=== PATIENT | male | born 1975 | race Two or more races ===

== ENCOUNTER 2016-06-25 20:42 | Inpatient (IN) | payer SELFPAY ==
[~2016-06-25] VITALS: Ht 172.7 cm; Wt 98.2 kg
[2016-06-25 21:25] LABS: BASO # 0.1 x10^3/uL (0.0-0.2); BASO % 1 % (0-3); EOS % 0 % (0-3); HEMATOCRIT 47.1 % (39.0-53.0); HEMOGLOBIN 16.6 g/dL (13.0-17.5); LYMPH # 2.1 x10^3/uL (1.0-4.8); LYMPH % 16 % (24-48); MEAN CORPUSCULAR HEMOGLOBIN 32 pg (25-35); MEAN CORPUSCULAR HGB CONC 35 g/dL (31-37); MEAN CORPUSCULAR VOLUME 90 fL (79-100); MONO % 9 % (0-9); NEUT % 75 % (31-73); PLATELET COUNT 365 x10^3/uL (140-400); RED BLOOD COUNT 5.25 x10^6/uL (4.30-5.70); RED CELL DISTRIBUTION WIDTH 13.3 % (11.5-14.5); WHITE BLOOD COUNT 13.6 x10^3/uL (4.0-11.0)
[2016-06-25] MEDS ORDERED: IV NORMAL SALINE 1000ML BAG 1,000 ML IV ONE (21:45)
[2016-06-25 21:48] LABS: CALCIUM 9.6 mg/dL (8.5-10.1); CREATININE 0.9 mg/dL (0.7-1.3); POTASSIUM 4.2 mmol/L (3.5-5.1)
[2016-06-25 21:50] LABS: ALBUMIN 4.1 g/dL (3.4-5.0); TOTAL BILIRUBIN 0.9 mg/dL (0.2-1.0); TOTAL PROTEIN 8.1 g/dL (6.4-8.2)
[2016-06-25] MEDS ORDERED: KETOROLAC 15 MG/ML VIAL. IV ONE (22:45)
[2016-06-25] MEDS ORDERED: LIDO:MAALOX:DONNATAL 1:1:1 15 ML SINGLE DOSE SWSW ONE (22:45)
[2016-06-25] MEDS ORDERED: HYDROmorphone 2 MG/ML VIAL IV ONE (22:45)
[2016-06-25] MEDS ORDERED: ONDANSETRON PF 4 MG/2 ML VIAL. IV ONE (22:45)
[2016-06-25 23:02] LABS: BILIRUBIN,URINE NEGATIVE (NEG); GLUCOSE,URINE NEGATIVE (NEG); NITRITE,URINE NEGATIVE (NEG); PH,URINE 6.5; PROTEIN,URINE 100 mg/dL (NEG-TRACE)
[2016-06-25 23:07] LABS: BARBITURATES NEG (NEG); BENZODIAZEPINES NEG (NEG); CANNABINOIDS NEG (NEG); COCAINE NEG (NEG); METHADONE NEG (NEG); OPIATES NEG (NEG); PHENCYCLIDINE NEG (NEG)
[2016-06-25 23:08] LABS: BACTERIA,URINE FEW /HPF (0-FEW)
--- NOTE | 2016-06-25 23:58 | RAD ---
PROCEDURE CT abdomen and pelvis without contrast HISTORY Abdominal pain for 2 days, nausea and vomiting TECHNIQUE Exposure: One or more of the following individualized dose reduction techniques were utilized for this exam: 1. Automated exposure control. 2. Adjustment of the mA and/or kV according to patient size. 3. Use of iterative reconstruction technique. Helical noncontrast CT imaging of the abdomen and pelvis was acquired COMPARISON No prior FINDINGS Abdomen: Hypodensity of the liver likely fatty. Pancreas, adrenals, spleen, gallbladder and kidneys are unremarkable. No nephroureterolithiasis or hydronephrosis. There is mild descending and sigmoid colon diverticulosis. No bowel obstruction or inflammation. The appendix is negative. No abdominal fluid. Pelvis: Bladder, prostate, rectum and bones are unremarkable. No pelvic fluid. Bones unremarkable. IMPRESSION No acute process. Appendix is negative. Probable fatty liver. Sigmoid colon diverticulosis. Electronically signed by: Fred Minaya MD (June 25, 2016 23:57:58)
[2016-06-26] MEDS ORDERED: ONDANSETRON PF 4 MG/2 ML VIAL. IV PRN (00:15)
[2016-06-26] MEDS ORDERED: ACETAMINOPHEN 325 MG TABLET. PO PRN (00:15)
[2016-06-26 00:23] VITALS: BP 134/101
[2016-06-26] MEDS: IV NORMAL SALINE 1000ML BAG 1,000 ML IV SCH ×2 (02:09→10:17)
[2016-06-26 02:43] VITALS: BP 142/103
--- NOTE | 2016-06-26 02:57 | PHYS DOC ---
Past Medical History Past Medical History: No Pertinent History Past Surgical History: Other Additional Past Surgical Histo: L. HAND Alcohol Use: Heavy Drug Use: Methamphetamine Adult General Chief Complaint Chief Complaint: CHEST PAIN HPI HPI Patient is a 40 year old gentleman with a history significant for tobacco alcohol or drug use presents here today complaining of chest pain for 2 hours. Patient reports that he smokes every day. Patient reports he's been drinking heavily recently. Patient reports that he utilized methamphetamine over the last 24-48 hours. Patient reports that he's got sharp and pressure-like sensation to the left side of his chest. Patient reports she's had nausea vomiting diaphoresis with the patient's friend the pain as a pressure sensation on the left side of his chest with associated shortness of breath. Patient denies any pain radiating down his arms back or jaw however he does have some numbness sensation to both hands. Patient has any cough abdominal pain dysuria frequency or urgency. Patient has any fevers shakes chills. Patient reports the pain increases when he and released. Patient also complaining of abdominal discomfort which is in the midepigastric area. Patient denies any melena or bright red blood per rectum. Patient denies any history of gastritis or GI bleed in the past. She has been moving his bowels and passing flatus without any problems. Patient's physical exam the ED was significant for some reproducible tenderness to his left anterior chest wall. Patient reports that this is dissimilar to the pain that made him come to the ER. Patient also complaining of some midepigastric tenderness to palpation. Patient has normal active bowel sounds. Patient has no rebound or guarding. Patient is not exhibiting any signs or symptoms of be consistent with an acute surgical abdomen. Patient's lungs were clear. Patient was tachycardic in the ER. Patient's heart rates been running between 115 to 130 throughout his stay. Patient's ER workup has been unremarkable. Patient's EKG revealed sinus tachycardia with nonspecific ST-T wave abnormalities with no evidence of ST elevation PR. Patient's lab work is benign unremarkable. Patient's troponin is negative. Patient's lipase is within normal limits. Patient had a CT scan of his abdomen and pelvis which revealed no acute pathology. The ER the patient was given pain medications for his abdominal discomfort and antiemetics. Patient was given IV fluids. Patient reports no significant change in the pain since he's been here. A/P #1 chest pain etiology unclear however given the fact the patient does use methamphetamines and the nature of his discomfort patient will be admitted to the hospital to rule out for cardiac source of his pain. #2 tachycardia most likely secondary to the patient's methamphetamine use. We will observe him after rehydrate and reevaluate. #3 abdominal pain. Patient likely has gastritis. Pain he reports slightly improved after the medicines that we've given him in the ED. Patient's CT scan of his abdomen and pelvis did not reveal any source for his abdominal discomfort. Patient will be reassessed while he is in hospital for this. Review of Systems Review of Systems Constitutional: Denies fever or chills [] Eyes: Denies change in visual acuity, redness, or eye pain [] HENT: Denies nasal congestion or sore throat [] All other review systems are negative except as documented in the history of present illness portion. Current Medications Current Medications Current Medications Medications (Trade) Dose Ordered Sig/Mona Start Time Stop Time Status Last Admin Dose Admin Hydromorphone HCl (Dilaudid) 0.5 mg 1X ONCE 06/25/16 22:45 06/25/16 22:46 DC 06/25/16 22:54 0.5 MG Ketorolac Tromethamine (Toradol) 15 mg 1X ONCE 06/25/16 22:45 06/25/16 22:46 DC 06/25/16 22:53 15 MG Multi-Ingredient Mouthwash/Gargle (Gi Cocktail Single Dose) 15 ml 1X ONCE 06/25/16 22:45 06/25/16 22:46 DC 06/25/16 22:53 15 ML Ondansetron HCl (Zofran) 4 mg 1X ONCE 06/25/16 22:45 06/25/16 22:46 DC 06/25/16 22:53 4 MG Sodium Chloride 1,000 ml @ 1,000 mls/hr 1X ONCE 06/25/16 21:45 06/25/16 22:44 DC 06/25/16 21:48 1,000 MLS/HR Allergies Allergies Allergies Coded Allergies Type Severity Reaction Last Updated Verified No Known Drug Allergies 06/25/16 No Physical Exam Physical Exam Constitutional: Well developed, well nourished, no acute distress, non-toxic appearance. [] HENT: Normocephalic, atraumatic, bilateral external ears normal, oropharynx moist, no oral exudates, nose normal. [] Eyes: PERRLA, EOMI, conjunctiva normal, no discharge. [] Neck: Normal range of motion, no tenderness, supple, no stridor. [] Cardiovascular:Heart rate regular rhythm, tachy Lungs & Thorax: Bilateral breath sounds clear to auscultation [] Abdomen: Bowel sounds normal, soft, , no masses, no pulsatile masses. [] Skin: Warm, dry, no erythema, no rash. [] Back: No tenderness, no CVA tenderness. [] Extremities: No tenderness, no cyanosis, no clubbing, ROM intact, no edema. [] Neurologic: Alert and oriented X 3, normal motor function, normal sensory function, no focal deficits noted. [] Psychologic: Affect normal, judgement normal, mood normal. [] Current Patient Data Vital Signs Vital Signs Date Time Temp Pulse Resp B/P (MAP) Pulse Ox O2 Delivery O2 Flow Rate FiO2 06/25/16 22:56 124 20 152/108 (123) 95 Room Air 06/25/16 21:28 97.9 97.9 Lab Values Laboratory Tests Test 06/25/16 20:54 06/25/16 22:50 White Blood Count 13.6 x10^3/uL (4.0-11.0) H Red Blood Count 5.25 x10^6/uL (4.30-5.70) Hemoglobin 16.6 g/dL (13.0-17.5) Hematocrit 47.1 % (39.0-53.0) Mean Corpuscular Volume 90 fL (79-100) Mean Corpuscular Hemoglobin 32 pg (25-35) Mean Corpuscular Hemoglobin Concent 35 g/dL (31-37) Red Cell Distribution Width 13.3 % (11.5-14.5) Platelet Count 365 x10^3/uL (140-400) Neutrophils (%) (Auto) 75 % (31-73) H Lymphocytes (%) (Auto) 16 % (24-48) L Monocytes (%) (Auto) 9 % (0-9) Eosinophils (%) (Auto) 0 % (0-3) Basophils (%) (Auto) 1 % (0-3) Neutrophils # (Auto) 10.2 x10^3uL (1.8-7.7) H Lymphocytes # (Auto) 2.1 x10^3/uL (1.0-4.8) Monocytes # (Auto) 1.2 x10^3/uL (0.0-1.1) H Eosinophils # (Auto) 0.0 x10^3/uL (0.0-0.7) Basophils # (Auto) 0.1 x10^3/uL (0.0-0.2) Sodium Level 139 mmol/L (136-145) Potassium Level 4.2 mmol/L (3.5-5.1) Chloride Level 100 mmol/L (98-107) Carbon Dioxide Level 23 mmol/L (21-32) Anion Gap 16 (6-14) H Blood Urea Nitrogen 11 mg/dL (8-26) Creatinine 0.9 mg/dL (0.7-1.3) Estimated GFR (Cockcroft-Gault) 93.0 BUN/Creatinine Ratio 12 (6-20) Glucose Level 112 mg/dL (70-99) H Calcium Level 9.6 mg/dL (8.5-10.1) Total Bilirubin 0.9 mg/dL (0.2-1.0) Aspartate Amino Transferase (AST) 30 U/L (15-37) Alanine Aminotransferase (ALT) 52 U/L (16-63) Alkaline Phosphatase 60 U/L (46-116) Troponin I Quantitative 0.032 ng/mL (0.000-0.055) ZB-Lzo-H-Type Natriuretic Peptide 77 pg/mL (0-124) Total Protein 8.1 g/dL (6.4-8.2) Albumin 4.1 g/dL (3.4-5.0) Albumin/Globulin Ratio 1.0 (1.0-1.7) Lipase 84 U/L (73-393) Urine Collection Type Unknown Urine Color Yellow Urine Clarity Clear Urine pH 6.5 Urine Specific [place] 1.025 Urine Protein 100 mg/dL (NEG-TRACE) Urine Glucose (UA) Negative mg/dL (NEG) Urine Ketones (Stick) >=80 mg/dL (NEG) Urine Blood Negative (NEG) Urine Nitrite Negative (NEG) Urine Bilirubin Negative (NEG) Urine Urobilinogen Dipstick 1.0 mg/dL (0.2 mg/dL) Urine Leukocyte Esterase Small (NEG) Urine RBC 1-2 /HPF (0-2) Urine WBC 1-4 /HPF (0-4) Urine Squamous Epithelial Cells None /LPF Urine Bacteria Few /HPF (0-FEW) Urine Mucus Mod /LPF Urine Opiates Screen Neg (NEG) Urine Methadone Screen Neg (NEG) Urine Barbiturates Neg (NEG) Urine Phencyclidine Screen Neg (NEG) Urine Amphetamine/Methamphetamine Pos (NEG) Urine Benzodiazepines Screen Neg (NEG) Urine Cocaine Screen Neg (NEG) Urine Cannabinoids Screen Neg (NEG) Urine Ethyl Alcohol Pos (NEG) Laboratory Tests 06/25/16 20:54 Laboratory Tests 06/25/16 20:54 EKG EKG [] Radiology/Procedures Radiology/Procedures [] Course & Med Decision Making Course & Med Decision Making Pertinent Labs and Imaging studies reviewed. (See chart for details) [] Dragon Disclaimer Dragon Disclaimer This electronic medical record was generated, in whole or in part, using a voice recognition dictation system. Departure Departure Impression: Primary Impression: Abdominal pain Additional Impressions: Nonspecific chest pain Tachycardia Methamphetamine use Alcohol use Disposition: 09 ADMITTED INPATIENT Admitting Physician: Other (reusch) Condition: GUARDED Referrals: NO PCP (PCP) Problem Qualifiers Primary Impression: Abdominal pain Abdominal location: epigastric Qualified Codes: R10.13 - Epigastric pain DARLENE COFFEY MD June 26, 2016 02:57
[2016-06-26] MEDS ORDERED: IBUPROFEN 400 MG TABLET. PO PRN (03:45)
[2016-06-26] MEDS: METOPROLOL TART IMMED RELEASE 25 MG TABLET. PO SCH ×3 (03:49→12:09)
--- NOTE | 2016-06-26 05:21 | ACF ---
Admission Forms Criteria ABDOMINAL PAIN Clinical Indications for Admission to Inpatient Care (Place 'X' for any and all applicable criteria): Admission is indicated for ANY ONE of the following(1)(2)(3)(4)(5): [ ]I. Inpatient admission required rather than observation care (Also use Abdominal Pain: Observation Care, as appropriate) because of ANY ONE of the following: [ ]a) Severe pain requiring acute inpatient management [ ]b) Identification of etiology/finding that requires inpatient care (eg, aortic dissection, free air) [ ]c) Absent bowel sounds with complete ileus(6) [ ]d) Suspected toxic megacolon [ ]e) Severe electrolyte abnormalities requiring inpatient care [ ]f) High fever or infection requiring inpatient admission as indicated by ANY ONE of following(7)(8): [ ] i) Appropriate outpatient or observational care antimicrobial treatment unavailable, not effective, or not feasible [ ] ii) Documented bacteremia [ ] iii) Temperature > 104.9 degrees F (oral) [ ] iv) T >103.1 F (oral) or < 96.8 F(rectal) that does not respond to all emergency treatment measures [ ]g) Signs of intestinal obstruction [B] [ ]h) Hemodynamic instability [ ]i) IV fluid to replace significant ongoing losses (greater than 3 L/m2 per day) (12)(13) [ ]j) Percutaneous or open drainage (eg, abscess, biliary tract ) procedures [ ]k) Parenteral nutrition regimen that must be implemented on inpatient basis [ ]l) Other condition,treatment or monitoring requiring inpatient admission. [ ]II. Peritoneal signs present [ ]III. Surgery needed that cannot be performed on an ambulatory basis. [ ]IV. Evaluation requires patient to not eat or drink for extended period ( eg, more than 24 hours). [ ]V. Contraindications and/or Inappropriate clinical situations for Observational Care in patients with abdominal pain, when ANY ONE of the following is required: [ ]a) Thorough evaluation is required to prevent catastrophic events due to delays in diagnosing (e.g.Mesenteric ischemia) 1,3 [ ]b) Patient with severe pathology or with chronic symptoms unlikely to improve in the ED stay (3) [X]. General contraindications and/or Inappropriate clinical situations for Observational Care in patients with abdominal pain, when ANY ONE of the following is required: [ ]a) Prediction of prolongation of LOS based on ANY ONE of the following may be considered as a contraindication for observational care 2, 3, 4, 5, 6, 7, 8, 9, 10, 11 [ ]i) Age > 65 yrs. [ ]ii) Patient arriving by ambulance [ ]iii) Patient with high acuity [ ]iv) Patient requiring vital sign monitoring [ ]v) Patient on IV medication [X]b) Systolic blood pressures 180mmHg 3,12 [ ]c) Patient with altered mental status including delirium and other alteration of consciousness, (3) [ ]d) Patient whose discharge disposition will be to a alf home or rehabilitation home should not be managed in Emergency Department Observation Unit. CMS rule requires 3 days hospital stay before such placement.3,13 [ ]e) Patient with failure to thrive due to broad array of etiologies 3,16,17 [ ]f) Inability to ambulate 3,14 Extended stay beyond goal length of stay may be needed for(2)(3): [ ]a) Persistent abdominal pain with suspected intra-abdominal process [ ]b) Diagnosed condition requiring continued stay (e.g., pancreatitis, complicated diverticulitis) [ ]c) Surgery (e.g., colectomy) The original [facility] content created by [employer] has been revised. The portions of the content which have been revised are identified through the use of italic text or in bold, and [facility] has neither reviewed nor approved the modified material.All other unmodified content is copyright [employer]. Please see references footnoted in the original [facility] edition 2016 Admission Criteria Met?: Yes YENY FRANK June 26, 2016 05:21
[2016-06-26] MEDS ORDERED: hydrALAZINE 20 MG/ML VIAL. IVP ONE (06:15)
--- NOTE | 2016-06-26 07:14 | EKG ---
[facility] [address] [place] [address] Test Date: 2016-06-25 Test Time: 20:48:43 Pat Name: EJREMY ASHTON Department: Room: 211 1 Gender: M Barn Worker: : 1975 Requested By: FAWAD CARROLL Order Number: [id number] Reading MD: Elvin Roth Measurements Intervals Hope Rate: 143 P: 1 [place]: 136 QRS: 49 QRSD: 78 T: 38 QT: 260 QTc: 406 Interpretive Statements SINUS TACHYCARDIA NON-SPECIFIC ST/T CHANGES Electronically Signed On 07-01-2016 9:12:55 CDT by Elvin Roth
--- NOTE | 2016-06-26 07:23 | RAD ---
Exam performed: One view chest. Indication: Chest pain today Date of Service: 06/25/2016 11:18 PM Comparison: None available. Single AP upright portable view chest findings: Cardiomediastinal silhouette is within limits of normal. No acute infiltrates, effusion or pneumothorax is detected. The bony structures are normal. Impression: No acute cardiopulmonary process is detected.
[2016-06-26 07:46] VITALS: BP 155/79
--- NOTE | 2016-06-26 09:43 | PDOC2 ---
CARDIAC CONSULT DATE OF CONSULT Date of Consult DATE: 06/26/16 TIME: 09:43 REASON FOR CONSULT Reason for Consult: chest pain REFERRING PHYSICIAN Referring Physician: Dr. Josefina Rios SOURCE Source: Caregiver (), Chart review, Patient HISTORY OF PRESENT ILLNESS HISTORY OF PRESENT ILLNESS 40 year old male admitted through the ER with c/o left side chest pain described as a grabbing and pressure sensation associated with left hand numbness, a fluttering sensation in his stomach with nausea and vomiting X 2 and abnormal sensation in his tongue. He also experienced a heavy sensation in his legs, diaphoresis and palpitations. Patient had a headache earlier in the day and was given 2 pills by a colleague. He did not know what was in the pills. Had also been drinking heavily X 2 days. UDS positive for methamphetamines and ETOH. EKG demonstrates tachycardia but no acute changes. Troponin levels not consistent with ACS. WBC mildly elevated @ 13. Reason for Visit: chest pain PAST MEDICAL HISTORY Cardiovascular: No pertinent hx Pulmonary: No pertinent hx CENTRAL NERVOUS SYSTEM: Other (denies) GI: No pertinent hx Heme/Onc: No pertinent hx Hepatobiliary: No pertinent hx Psych: No pertinent hx Musculoskeletal: No pain Rheumatologic: No pertinent hx Infectious disease: No pertinent hx ENT: No pertinent hx Renal/: No pertinent hx Endocrine: No pertinent hx Dermatology: No pertinent hx PAST SURGICAL HISTORY Past Surgical History: Other (left wrist; right leg plates for fracture) FAMILY HISTORY Family History: Hypertension (brother), Stroke (father at age 58) SOCIAL HISTORY Social History tobacco - smokes socially when he drinks ETOH ALCOHOL: occassional Drugs: Crystal meth (first use 06/25/2016) Lives: with Family () CURRENT MEDICATIONS CURRENT MEDICATIONS Current Medications Medications (Trade) Dose Ordered Sig/Mona Route PRN Reason Start Time Stop Time Status Last Admin Dose Admin Sodium Chloride 1,000 ml @ 1,000 mls/hr 1X ONCE IV 06/25/16 21:45 06/25/16 22:44 DC 06/25/16 21:48 Multi-Ingredient Mouthwash/Gargle (Gi Cocktail Single Dose) 15 ml 1X ONCE SWSW 06/25/16 22:45 06/25/16 22:46 DC 06/25/16 22:53 Ondansetron HCl (Zofran) 4 mg 1X ONCE IV 06/25/16 22:45 06/25/16 22:46 DC 06/25/16 22:53 Ketorolac Tromethamine (Toradol) 15 mg 1X ONCE IV 06/25/16 22:45 06/25/16 22:46 DC 06/25/16 22:53 Hydromorphone HCl (Dilaudid) 0.5 mg 1X ONCE IV 06/25/16 22:45 06/25/16 22:46 DC 06/25/16 22:54 Sodium Chloride 1,000 ml @ 125 mls/hr Q8H IV 06/26/16 00:15 06/27/16 00:14 06/26/16 02:09 Metoprolol Tartrate (Lopressor) 12.5 mg BID PO 06/26/16 03:45 06/26/16 03:49 Ibuprofen (Motrin) 400 mg PRN Q8HRS PRN PO PAIN 06/26/16 03:45 06/26/16 03:50 Hydralazine HCl (Apresoline) 10 mg 1X ONCE IVP 06/26/16 06:15 06/26/16 06:16 DC 06/26/16 06:27 ALLERGIES ALLERGIES: Coded Allergies: No Known Drug Allergies (Unverified , 06/25/16) ROS Review of System 14 point review with pertinent positives in HPI. PHYSICAL EXAM General: Alert, Oriented X3, Cooperative, No acute distress HEENT: Atraumatic, PERRLA Lungs: Clear to auscultation, Normal air movement Heart: Regular rate, Normal S1, Normal S2, No murmurs Abdomen: Normal bowel sounds, Soft, No tenderness Extremities: No edema, Normal pulses Skin: No rashes Neuro: Normal speech Psych/Mental Status: Mental status NL, Mood NL MUSCULOSKELETAL: No deformity VITALS VITALS Vital Signs Date Time Temp Pulse Resp B/P (MAP) Pulse Ox O2 Delivery O2 Flow Rate FiO2 06/26/16 07:46 99.0 111 18 155/79 (104) 96 Room Air 99.0 06/26/16 02:43 2.0 LABS Lab: Laboratory Tests Test 06/25/16 20:54 06/25/16 22:50 06/26/16 01:50 06/26/16 05:40 White Blood Count 13.6 x10^3/uL (4.0-11.0) Red Blood Count 5.25 x10^6/uL (4.30-5.70) Hemoglobin 16.6 g/dL (13.0-17.5) Hematocrit 47.1 % (39.0-53.0) Mean Corpuscular Volume 90 fL (79-100) Mean Corpuscular Hemoglobin 32 pg (25-35) Mean Corpuscular Hemoglobin Concent 35 g/dL (31-37) Red Cell Distribution Width 13.3 % (11.5-14.5) Platelet Count 365 x10^3/uL (140-400) Neutrophils (%) (Auto) 75 % (31-73) Lymphocytes (%) (Auto) 16 % (24-48) Monocytes (%) (Auto) 9 % (0-9) Eosinophils (%) (Auto) 0 % (0-3) Basophils (%) (Auto) 1 % (0-3) Neutrophils # (Auto) 10.2 x10^3uL (1.8-7.7) Lymphocytes # (Auto) 2.1 x10^3/uL (1.0-4.8) Monocytes # (Auto) 1.2 x10^3/uL (0.0-1.1) Eosinophils # (Auto) 0.0 x10^3/uL (0.0-0.7) Basophils # (Auto) 0.1 x10^3/uL (0.0-0.2) Sodium Level 139 mmol/L (136-145) Potassium Level 4.2 mmol/L (3.5-5.1) Chloride Level 100 mmol/L (98-107) Carbon Dioxide Level 23 mmol/L (21-32) Anion Gap 16 (6-14) Blood Urea Nitrogen 11 mg/dL (8-26) Creatinine 0.9 mg/dL (0.7-1.3) Estimated GFR (Cockcroft-Gault) 93.0 BUN/Creatinine Ratio 12 (6-20) Glucose Level 112 mg/dL (70-99) Calcium Level 9.6 mg/dL (8.5-10.1) Total Bilirubin 0.9 mg/dL (0.2-1.0) Aspartate Amino Transf (AST/SGOT) 30 U/L (15-37) Alanine Aminotransferase (ALT/SGPT) 52 U/L (16-63) Alkaline Phosphatase 60 U/L (46-116) Troponin I Quantitative 0.032 ng/mL (0.000-0.055) < 0.017 ng/mL (0.000-0.055) DC-Bhu-H-Type Natriuretic Peptide 77 pg/mL (0-124) Total Protein 8.1 g/dL (6.4-8.2) Albumin 4.1 g/dL (3.4-5.0) Albumin/Globulin Ratio 1.0 (1.0-1.7) Lipase 84 U/L (73-393) Urine Collection Type Unknown Urine Color Yellow Urine Clarity Clear Urine pH 6.5 Urine Specific [place] 1.025 Urine Protein 100 mg/dL (NEG-TRACE) Urine Glucose (UA) Negative mg/dL (NEG) Urine Ketones (Stick) >=80 mg/dL (NEG) Urine Blood Negative (NEG) Urine Nitrite Negative (NEG) Urine Bilirubin Negative (NEG) Urine Urobilinogen Dipstick 1.0 mg/dL (0.2 mg/dL) Urine Leukocyte Esterase Small (NEG) Urine RBC 1-2 /HPF (0-2) Urine WBC 1-4 /HPF (0-4) Urine Squamous Epithelial Cells None /LPF Urine Bacteria Few /HPF (0-FEW) Urine Mucus Mod /LPF Urine Opiates Screen Neg (NEG) Urine Methadone Screen Neg (NEG) Urine Barbiturates Neg (NEG) Urine Phencyclidine Screen Neg (NEG) Urine Amphetamine/Methamphetamine Pos (NEG) Urine Benzodiazepines Screen Neg (NEG) Urine Cocaine Screen Neg (NEG) Urine Cannabinoids Screen Neg (NEG) Urine Ethyl Alcohol Pos (NEG) Lactic Acid Level 1.4 mmol/L (0.4-2.0) IMAGES IMAGES CXR without acute process CT abdomen/pelvis - no acute findings; fatty liver; sigmoid diverticulosis EKG EKG no acute changes ASSESSMENT/PLAN ASSESSMENT/PLAN 1. chest pain no acute EKG changes and troponin levels not consistent with ACS suspect symptoms due to methamphetamine use and its stimulant effects echo to evaluate LV function; if no significant findings, may discharge 2. HTN started on meds will need PCP f/u ? related to meth use 3. abdominal pain no acute findings in CT scan 4. polysubstance abuse tobacco, meth, ETOH rehydrate Problems: DB ENAMORADO APRN June 26, 2016 09:43
[2016-06-26 11:03] VITALS: BP 129/72
--- NOTE | 2016-06-26 15:18 | CARD ---
APPROVED REPORT EXAM: Two-dimensional and M-mode echocardiogram with Doppler and color Doppler. Other Information Quality : Average Rhythm : NSR INDICATION Chest Pain 2D DIMENSIONS RVDd2.6 (2.9-3.5cm)Left Atrium(2D)3.1 (1.6-4.0cm) IVSd1.2 (0.7-1.1cm)Aortic Root(2D)3.3 (2.0-3.7cm) LVDd4.6 (3.9-5.9cm)LVOT Diameter2.0 (1.8-2.4cm) PWd1.2 (0.7-1.1cm)LVDs3.2 (2.5-4.0cm) FS (%) 31.2 %SV57.4 ml LVEF(%)59.0 (>50%) Aortic Valve AoV Peak Amos.130.4cm/sAoV VTI18.6cm AO Peak GR.6.8mmHgLVOT Peak Amos.91.5cm/s LVOT VTI 19.39cmAO Mean GR.4mmHg KATYA (VMAX)2.65yb4AQV (VTI)3.12cm2 Mitral Valve MV E Uwoidjrp35.5cm/sMV DECEL ZXTW389nm MV A Mbnmtljr02.0cm/sMV UXM16hm E/A Ratio0.8MV A Jpbjtzyo352az MVA (PHT)2.94cm2 TDI E/Lateral E'8.0E/Medial E'10.6 Pulmonary Valve PV Peak Fwbtpual28.0cm/sPV Peak Grad.4mmHg RVOT VTI11.3cm Tricuspid Valve TR P. Huqcdear791tv/sRAP XWRRDFAM9nbZx TR Peak Gr.83uvHxVHOG15ltGd LEFT VENTRICLE The left ventricle is normal size. There is borderline concentric left ventricular hypertrophy. Left ventricle systolic function is normal. The Ejection Fraction is 55-60%. There is normal LV segmental wall motion. Tissue Doppler imaging reveals mild left ventricular diastolic dysfunction. Transmitral Doppler flow pattern is Grade I-abnormal relaxation pattern. RIGHT VENTRICLE The right ventricle is normal size. The right ventricular systolic function is normal. ATRIA The left atrium size is normal. The right atrium size is normal. The interatrial septum is intact wit h no evidence for an atrial septal defect or patent foramen ovale as noted on 2-D or Doppler imaging. AORTIC VALVE The aortic valve is normal in structure and function. The aortic valve is trileaflet. Doppler and Col or Flow revealed no significant aortic regurgitation. There is no significant aortic valvular stenosi s. MITRAL VALVE The mitral valve is normal in structure and function. There is no mitral valve stenosis. Doppler and Color Flow revealed no mitral valve regurgitation noted. TRICUSPID VALVE The tricuspid valve is normal in structure and function. Doppler and Color Flow revealed trace tricus pid regurgitation. The PA pressure was estimated at 23 mmHg. There is no tricuspid valve stenosis. PULMONIC VALVE The pulmonic valve is not well visualized. Doppler and Color Flow revealed no pulmonic valvular regur gitation. There is no pulmonic valvular stenosis. GREAT VESSELS The aortic root is normal in size. The IVC is normal in size and collapses >50% with inspiration. PERICARDIAL EFFUSION There is no evidence of significant pericardial effusion. Critical Notification Critical Value: No <Conclusion> The left ventricle is normal size. Left ventricle systolic function is normal. The Ejection Fraction is 55-60%. There is borderline concentric left ventricular hypertrophy. There is no significant aortic valvular stenosis. Doppler and Color Flow revealed no significant aortic regurgitation. Doppler and Color Flow revealed no mitral valve regurgitation noted. Doppler and Color Flow revealed trace tricuspid regurgitation. The PA pressure was estimated at 23 mmHg. There is no evidence of significant pericardial effusion.
[2016-06-26 15:29] VITALS: BP 115/69
--- NOTE | 2016-06-26 20:49 | SSS ---
ADMIT DATE: 06/26/2016 CHIEF COMPLAINT: Chest pain. HISTORY OF PRESENT ILLNESS: The patient is a 40-year-old who presented to the Emergency Room with left-sided chest pain, which he described as a pressure type sensation. He had similar symptoms and numbness in his left hand. He had nausea and vomiting x 2 and abnormal sensation in his tongue. Also, admits to diaphoresis, palpitations, heavy sensation in his legs and headaches. On further evaluation, UDS was positive for methamphetamines and alcohol and he he had been using both with a colleague of his. Then got a couple of pills of unknown specificity from his colleague for headache and symptoms worsened. In the Emergency Room, troponin levels were flat, WBC mildly elevated and he was admitted for rule out ID. PAST MEDICAL HISTORY: Essentially negative. FAMILY HISTORY: Hypertension in brother, stroke in father at age 58. SOCIAL HISTORY: Works in [employer], smokes tobacco when he drinks alcohol, which is frequently, using crystal meth occasionally, he says once a month. Lives with his . ALLERGIES: No known drug allergies. MEDICATIONS: None at home. REVIEW OF SYSTEMS: Chest pain, currently is almost resolved. Denies any associated symptoms. Rest of organ system review is negative. PHYSICAL EXAMINATION: VITAL SIGNS: From today show blood pressure of 129/72, heart rate of 126, respiratory rate at 18. He is afebrile. GENERAL: This is a 40-year-old obese gentleman, alert and oriented, in no acute distress. HEENT: Shows no scleral icterus. NECK: Supple, without any JVD or LAD. LUNGS: Clear. HEART: Slightly tachycardic. ABDOMEN: Positive bowel sounds, soft, nontender. EXTREMITIES: Show no edema. LABORATORY DATA: CBC with a WBC of 13.6, hemoglobin 16.6, platelets of 365. Chemistries with a BUN and creatinine of 11 and 0.9, normal electrolytes. Troponins negative x 3. IMAGING STUDIES: Show a chest x-ray without cardiopulmonary abnormalities. CT of the abdomen was obtained as well for nausea and vomiting, which was negative. ASSESSMENT AND PLAN: The patient is a 40-year-old gentleman presenting with chest pain and sorted other symptoms which are most likely related to methamphetamine use. His story on his alcohol use was investigated. Suspect uses much more than he admits to. In either case, he has ruled out for acute coronary syndrome. An echocardiogram was ordered by Cardiology service to further evaluate. This showed a normal EF of 55-60 and mild ventricular diastolic function. The patient was strongly advised to stop using methamphetamine. He relates that in the past he also used cocaine. He was strongly advised to stop that as well. Without any further symptoms, he was discharged to home. DISCHARGE DATE: 06/26/2016. DISCHARGE DISPOSITION: To home. DISCHARGE CONDITION: Improved. DISCHARGE DIAGNOSES: Chest pain, drug induced. DISCHARGE MEDICATIONS: None. DISCHARGE INSTRUCTIONS: The patient was strongly urged to stop using street drugs given his cardiac symptoms. He was strongly urged as well to follow up with PCP for further monitoring. FAWAD CARROLL MD DR: JAMI/nts JOB#: [id number] / [id number] FLAKO
== END 2016-06-26 16:20 | disposition home or self-care (01) | DRG 313 ==
LOC: ER 20:42 → 2 NORTH 23:29
PROVIDERS: ADMIT Internal Medicine Hematology & Oncology; ATTEND Internal Medicine Hematology & Oncology
DX: R07.9 Chest pain, unspecified (principal); F17.200 Nicotine dependence, unspecified, uncomplicated; I10 Essential (primary) hypertension; Z82.3 Family history of stroke; Z82.49 Family history of ischemic heart disease and other diseases of the circulatory system; T43.625A Adverse effect of amphetamines, initial encounter
CPT/HCPCS: 36415; 71010; 74176; 80053; 81001; 83605; 83690; 83880; 84484; 85027; 87086; 93005; 93306; 96361; 96374; 96375; G0481; J0360; J1170; J1885; J2405; J7030; 99285-25

== ENCOUNTER 2016-11-27 20:36 | Emergency (ER) | payer SELFPAY ==
[~2016-11-27] VITALS: Ht 172.7 cm; Wt 99.8 kg
[2016-11-27 20:50] VITALS: BP 152/94
[2016-11-27] MEDS ORDERED: HYDROcodone/APAP 5/325MG 1 TAB TABLET PO ONE (23:00)
[2016-11-27] MEDS ORDERED: TETANUS AND DIPHTHERIA TOX/PF 0.5 ML DISP.SYRIN. VAX IM ONE (23:00)
--- NOTE | 2016-11-27 23:35 | PHYS DOC ---
Past Medical History Past Medical History: No Pertinent History Past Surgical History: Other Additional Past Surgical Histo: ORTHOPEDIC L WRIST AND R LEG Alcohol Use: None Drug Use: None Adult General Chief Complaint Chief Complaint: LACERATION/AVULSION HPI HPI Patient is a 41 year old R handed who presents with an isolated partial nail bed injury/avulsion to distal tip of left middle finger. Patient was using a saw him cutting wood and holding the wood with his left hand when it kicked back against the edge of the blade. Patient has 0.5 cm x 0.5 cm soft tissue defect to the distal aspect of the nail and nail bed. Bleeding is controlled. Wound is superficial clean. There is no bony involvement. Last tetanus was 7 years ago.[] Review of Systems Review of Systems Review of symptoms as prescribed. Current Medications Current Medications Current Medications Medications (Trade) Dose Ordered Sig/Mona Start Time Stop Time Status Last Admin Dose Admin Acetaminophen/ Hydrocodone Bitart (Lortab 5/325) 1 tab 1X ONCE 11/27/16 23:00 11/27/16 23:01 DC 11/27/16 23:06 1 TAB Tetanus/ Diphtheria Toxoids (Tenivac Syringe) 0.5 ml ONCE ONCE 11/27/16 23:00 11/27/16 23:01 DC 11/27/16 23:10 0.5 ML Allergies Allergies Allergies Coded Allergies Type Severity Reaction Last Updated Verified No Known Drug Allergies 06/25/16 No Physical Exam Physical Exam Constitutional: Well developed, well nourished, no acute distress, non-toxic appearance. [] Extremities: Patient has 0.5 cm x 0.5 cm soft tissue defect to the distal aspect of the nail and nail bed. Bleeding is controlled. Wound is superficial clean. There is no bony involvement.. [] Neurologic: Alert and oriented X 3, normal motor function, normal sensory function, no focal deficits noted. [] Psychologic: Affect normal, judgement normal, mood normal. [] Current Patient Data Vital Signs Vital Signs Date Time Temp Pulse Resp B/P (MAP) Pulse Ox O2 Delivery O2 Flow Rate FiO2 11/27/16 23:06 98 Room Air 11/27/16 20:50 98.1 74 18 98.1 EKG EKG [] Radiology/Procedures Radiology/Procedures [] Course & Med Decision Making Course & Med Decision Making Pertinent Labs and Imaging studies reviewed. (See chart for details) [Wound clean, bandaged and protected with splint. Topical antibiotic 5 prior to bandaged. Tetanus updated. Typical wound instructions given with PCP follow-up recommended. Return precautions reviewed. Patient verbalizes understanding and agreement discharge instructions prior to departure.] Dragon Disclaimer Dragon Disclaimer This electronic medical record was generated, in whole or in part, using a voice recognition dictation system. Departure Departure Impression: Primary Impression: Nailbed laceration, finger Disposition: HOME, SELF-CARE Condition: GOOD Patient Instructions: Nail Bed Injury, [id number]-[id number] Additional Instructions: Please keep wound clean, dry and covered. Apply topical antibiotics twice daily and ibuprofen as needed for pain. Take ibuprofen for pain and follow-up with your PCP or work comp doctor in 3-5 days for reevaluation. If you develops signs of infection, return to the emergency department. JUDE ASHTON DO Nov 27, 2016 23:35
== END 2016-11-27 23:26 | disposition home or self-care (01) ==
LOC: ER 20:36
DX: S61.313A Laceration without foreign body of left middle finger with damage to nail, initial encounter (principal); W27.0XXA Contact with workbench tool, initial encounter; Y93.89 Activity, other specified; Y92.89 Other specified places as the place of occurrence of the external cause; Y99.8 Other external cause status
CPT/HCPCS: 29130; 90471; 90714; 99283-25

== ENCOUNTER 2017-02-17 17:23 | Emergency (ER) | payer OTHER ==
[2017-02-17] MEDS: DEXAMETHASONE 4 MG TABLET PO (18:06)
== END 2017-02-17 18:08 | disposition home or self-care (01) ==
LOC: ER 17:23
DX: J02.9 Acute pharyngitis, unspecified (principal); H92.03 Otalgia, bilateral
CPT/HCPCS: 99282; J8540

== ENCOUNTER 2018-02-19 03:32 | Emergency (ER) | payer OTHER ==
[~2018-02-19] VITALS: Ht 172.7 cm; Wt 106.6 kg
[2018-02-19] MEDS ORDERED: KETOROLAC 30 MG/ML VIAL. IM ONE (04:15)
[2018-02-19] MEDS ORDERED: MORPHINE SULFATE 4 MG/ML VIAL. IM ONE (04:15)
[2018-02-19] MEDS ORDERED: HYDR-3164 PO (04:30)
--- NOTE | 2018-02-19 04:49 | PHYS DOC ---
Past Medical History Past Medical History: Hypertension Past Surgical History: Other Additional Past Surgical Histo: leg and arm surgery Alcohol Use: Occasionally Drug Use: Cocaine Adult General Chief Complaint Chief Complaint: UPPER EXTREMITY PAIN HPI HPI Patient is a 42 year old m p/w cc of shoulder pain. onset four hours ago. has had some shoulder pain in te past no definite injury noted. pain increasing worse with palpation. worse with abduction. sharp severe radiates to the neck no chest pain not exertioanl Review of Systems Review of Systems Constitutional: Denies fever or chills [] Eyes: Denies change in visual acuity, redness, or eye pain [] HENT: Denies nasal congestion or sore throat [] Respiratory: Denies cough or shortness of breath [] Cardiovascular: No additional information not addressed in HPI [] GI: Denies abdominal pain, nausea, vomiting, bloody stools or diarrhea [] : Denies dysuria or hematuria [ All other systems were reviewed and found to be within normal limits, except as documented in this note. Current Medications Current Medications Current Medications Medications (Trade) Dose Ordered Sig/Mona Start Time Stop Time Status Last Admin Dose Admin Ketorolac Tromethamine (Toradol 30mg Vial) 30 mg 1X ONCE 02/19/18 04:15 02/19/18 04:16 DC 02/19/18 04:09 30 MG Morphine Sulfate (Morphine Sulfate) 4 mg 1X ONCE 02/19/18 04:15 02/19/18 04:16 DC 02/19/18 04:09 4 MG Allergies Allergies Allergies Coded Allergies Type Severity Reaction Last Updated Verified No Known Drug Allergies 06/25/16 No Physical Exam Physical Exam Constitutional: Well developed, well nourished, no acute distress, non-toxic appearance. [] HENT: Normocephalic, atraumatic, bilateral external ears normal, oropharynx moist, no oral exudates, nose normal. [] Eyes: PERRLA, EOMI, conjunctiva normal, no discharge. [] Neck: Normal range of motion, no tenderness, supple, no stridor. [] Cardiovascular:Heart rate regular rhythm, no murmur [] Lungs & Thorax: Bilateral breath sounds clear to auscultation [] Abdomen: Bowel sounds normal, soft, no tenderness, no masses, no pulsatile masses. [] Skin: Warm, dry, no erythema, no rash. [] Back: No tenderness, no CVA tenderness. [] Extremities: No tenderness, no cyanosis, no clubbing, ROM intact, no edema. [] Neurologic: Alert and oriented X 3, normal motor function, normal sensory function, no focal deficits noted. [] Psychologic: Affect normal, judgement normal, mood normal. [] Current Patient Data Vital Signs Vital Signs Date Time Temp Pulse Resp B/P (MAP) Pulse Ox O2 Delivery O2 Flow Rate FiO2 02/19/18 04:09 18 02/19/18 03:43 98.4 80 147/100 (116) 99 Room Air 98.4 EKG EKG nsr rate 62 no stemi no ischemia[] Radiology/Procedures Radiology/Procedures [] Impressions: shouler xray neg acute Course & Med Decision Making Course & Med Decision Making Pertinent Labs and Imaging studies reviewed. (See chart for details) 42 yo m with cc of shoulder pain very reproducible on exam. out of abundance of caution ekg trop neg for ischemia shoulder xray neg acute no erythema or induration on exam. no fever. recommended pain control and gradual return to activity Dragon Disclaimer Dragon Disclaimer This electronic medical record was generated, in whole or in part, using a voice recognition dictation system. Departure Departure Impression: Primary Impression: Shoulder pain Disposition: 01 HOME, SELF-CARE Condition: STABLE Referrals: NO PCP UNKNOWN PCP NAME (PCP) Patient Instructions: Shoulder Pain, [id number] Scripts Hydrocodone/Apap 5-325 (NORCO 5-325 TABLET) 1 Each Tablet 1-2 EACH PO PRN Q6HRS PRN for PAIN, #15 as needed for pain Prov: JULIANE ESCOBAR MD 02/19/18 JULIANE ESCOBAR MD Feb 19, 2018 04:49
[2018-02-19 05:12] VITALS: BP 138/96
--- NOTE | 2018-02-19 05:36 | RAD ---
Right shoulder 3 views: Reason for examination: Right shoulder pain. No history of injury. No fracture or dislocation is seen. The bone density is normal. No abnormal periosteal reaction is seen. Joint spaces are maintained. IMPRESSION: No acute bony abnormality at the right shoulder. Electronically signed by: Evita Tomlinson MD (02/19/2018 5:32 AM) [id number]
--- NOTE | 2018-02-19 07:06 | EKG ---
[facility] [address] [place] [address] Test Date: 2018-02-19 Test Time: 04:00:48 Pat Name: JEREMY ASHTON Department: Room: Gender: Director Surgical: : 1975 Requested By: JULIANE ESCOBAR Order Number: [id number] Reading MD: Measurements Intervals [place] Rate: 74 P: 37 LA: 184 QRS: -9 QRSD: 88 T: 51 QT: 372 QTc: 418 Interpretive Statements SINUS RHYTHM LEFTWARD AXIS R-S TRANSITION ZONE IN V LEADS DISPLACED TO THE LEFT LOW LIMB LEAD VOLTAGE T ABNORMALITY IN HIGH LATERAL LEADS ABNORMAL ECG RI6.01 No previous ECG available for comparison
== END 2018-02-19 05:14 | disposition home or self-care (01) ==
LOC: ER 03:32
DX: M25.511 Pain in right shoulder (principal); I10 Essential (primary) hypertension
CPT/HCPCS: 73030; 84484; 93005; 96372; 99283; J1885; J2270